=== PATIENT | female | born 1995 | race Caucasian/White ===

== ENCOUNTER 2025-07-10 01:15 | Emergency (ER) | payer BC, SELFPAY ==
[2025-07-10 01:34] VITALS: BP 101/67
[2025-07-10] MEDS: ZOFRAN 4 MG IV (03:27)
--- NOTE | 2025-07-10 03:50 | ED.GENMED ---
History of Present Illness
<Eun Clemens PA-C - Last Filed: 07/10/25 07:50>
General
Chief Complaint: Abdominal Symptoms
Source: patient
Exam Limitations: none
Time Seen by Provider: 07/10/25 03:43
Nursing documentation reviewed up to this point in time: agreed with
History of Present Illness
History of Present Illness:
30-year-old female presents to the ER today with concerns of multiple episodes of diarrhea for the past 4 days. She is also had intermittent abdominal cramping and pain. She started with vomiting today. She started using Imodium with some
decrease in frequency of stools. She reports that she has been going multiple times a day and her stools are just water. She has not been eating. She got home from arrival last night. She has not had a rash. No fevers, no blood in her stools.
The people who went on a trip with her have not been sick with similar symptoms.
Review of Systems
<Eun Clemens PA-C - Last Filed: 07/10/25 07:50>
Review of Systems
All Other Systems: ROS reviewed and negative except as documented in HPI and ROS
Phy Exam
<Eun Clemens PA-C - Last Filed: 07/10/25 07:50>
Physical Exam
Physical Exam:
General: Patient is well appearing and in no acute distress; non-toxic
Skin: Warm and dry, no rashes or lesions
Head: Normocephalic, atraumatic
Eyes: Sclera non-icteric. EOMs intact.
Cardiac: Regular rate and rhythm, no murmurs
Peripheral Vascular: No lower extremity swelling or edema
Pulm: Normal respiratory effort , no wheezes, rales, rhonchi
Abdomen: Left lower quadrant abdominal tenderness to palpation
Neuro: CN II-XII intact, no focal neurologic deficits.
Psychiatric: Appropriate mood and affect.
Course
<Eun Clemens PA-C - Last Filed: 07/10/25 07:50>
Orders/Labs/Results
Orders:
Orders
07/10/25 01:40
CONSULT Urgent
07/10/25 01:41
IV Insert/Care/Rem.- Treatment PRN
Straight cath- Treatment ONCE
Test Result ONCE
07/10/25 03:25
Ondansetron Injectable [Zofran] 4 mg .ROUTE .STK-MED ONE
07/10/25 03:26
Ondansetron Injectable [Zofran] 4 mg IV NOW STA
07/10/25 03:28
0.9% Sodium Chloride 1000 ml [Nss] 1,000 ml IV BOLUS
07/10/25 04:39
Test Result ONCE
07/10/25 04:41
Complete Blood Count/With Diff Urgent
Comprehensive Metabolic Panel Urgent
HCG, Serum Qualitative Screen Urgent
07/10/25 04:52
CT Abd/pelvis W Iv Cont Urgent
Comment:
Reason For Exam: Left lower quad pain
07/10/25 05:06
0.9% Sodium Chloride 1000 ml [Nss] 1,000 ml IV BOLUS
07/10/25 05:11
Feces O&P Giardia/Cryptosporidium AG [Giardia/Cryptosporidium Ag] Urgent
[facility] Source: Feces/Stool
Specimen Description:
Date Specimen was Collected: 07/10/25
Time Specimen was Collected: 05:09
Norovirus by PCR Urgent
[facility] Source: Feces/Stool
Specimen Description:
Date Specimen was Collected: 07/10/25
Time Specimen was Collected: 05:08
Stool Culture Urgent
[facility] Source: Feces/Stool
Specimen Description:
Date Specimen was Collected: 07/10/25
Time Specimen was Collected: 05:09
07/10/25 07:10
Ketorolac [Toradol] 15 mg IV NOW STA
Pantoprazole [Protonix IV] 40 mg IV NOW STA
07/10/25 07:11
0.9% Sodium Chloride 1000 ml [Nss] 1,000 ml IV BOLUS
Abnormal Lab Results
07/10/25
04:41
WBC 3.8 L 10^3/uL
(4.8-10.8)
Hct 35.6 L %
(37.0-47.0)
Monocytes % 13.1 H %
(1.7-9.3)
Sodium 133 L mmol/L
(135-145)
BUN 5 L mg/dl
(7-17)
Calcium 8.3 L mg/dl
(8.4-10.2)
Total Protein 6.0 L g/dl
(6.3-8.2)
Albumin 3.4 L g/dl
(3.5-5.0)
07/10/25 04:41
07/10/25 04:41
Vital Signs
Initial and Last Documented VS:
Initial Vital Signs
Temp Pulse Resp BP Pulse Ox
98.9 F 96 20 101/67 100
07/10/25 01:34 07/10/25 01:34 07/10/25 01:34 07/10/25 01:34 07/10/25 01:34
Last Documented Vital Signs
Temp Pulse Resp BP Pulse Ox
98.9 F 91 20 91/55 100
07/10/25 01:34 07/10/25 06:11 07/10/25 01:34 07/10/25 06:11 07/10/25 06:11
Maevelt;Roberto Pinto PA-C - Last Filed: 07/10/25 09:34>
Orders/Labs/Results
Orders:
Orders
07/10/25 01:40
CONSULT Urgent
07/10/25 01:41
IV Insert/Care/Rem.- Treatment PRN
Straight cath- Treatment ONCE
Test Result ONCE
07/10/25 03:25
Ondansetron Injectable [Zofran] 4 mg .ROUTE .STK-MED ONE
07/10/25 03:26
Ondansetron Injectable [Zofran] 4 mg IV NOW STA
07/10/25 03:28
0.9% Sodium Chloride 1000 ml [Nss] 1,000 ml IV BOLUS
07/10/25 04:39
Test Result ONCE
07/10/25 04:41
Complete Blood Count/With Diff Urgent
Comprehensive Metabolic Panel Urgent
HCG, Serum Qualitative Screen Urgent
07/10/25 04:52
CT Abd/pelvis W Iv Cont Urgent
Comment:
Reason For Exam: Left lower quad pain
07/10/25 05:06
0.9% Sodium Chloride 1000 ml [Nss] 1,000 ml IV BOLUS
07/10/25 05:11
Feces O&P Giardia/Cryptosporidium AG [Giardia/Cryptosporidium Ag] Urgent
[facility] Source: Feces/Stool
Specimen Description:
Date Specimen was Collected: 07/10/25
Time Specimen was Collected: 05:09
Norovirus by PCR Urgent
[facility] Source: Feces/Stool
Specimen Description:
Date Specimen was Collected: 07/10/25
Time Specimen was Collected: 05:08
Stool Culture Urgent
[facility] Source: Feces/Stool
Specimen Description:
Date Specimen was Collected: 07/10/25
Time Specimen was Collected: 05:09
07/10/25 07:10
Ketorolac [Toradol] 15 mg IV NOW STA
Pantoprazole [Protonix IV] 40 mg IV NOW STA
07/10/25 07:11
0.9% Sodium Chloride 1000 ml [Nss] 1,000 ml IV BOLUS
Abnormal Lab Results
07/10/25
04:41
WBC 3.8 L 10^3/uL
(4.8-10.8)
Hct 35.6 L %
(37.0-47.0)
Monocytes % 13.1 H %
(1.7-9.3)
Sodium 133 L mmol/L
(135-145)
BUN 5 L mg/dl
(7-17)
Calcium 8.3 L mg/dl
(8.4-10.2)
Total Protein 6.0 L g/dl
(6.3-8.2)
Albumin 3.4 L g/dl
(3.5-5.0)
07/10/25 04:41
07/10/25 04:41
Vital Signs
Initial and Last Documented VS:
Initial Vital Signs
Temp Pulse Resp BP Pulse Ox
98.9 F 96 20 101/67 100
07/10/25 01:34 07/10/25 01:34 07/10/25 01:34 07/10/25 01:34 07/10/25 01:34
Last Documented Vital Signs
Temp Pulse Resp BP Pulse Ox
98.9 F 91 20 91/55 100
07/10/25 01:34 07/10/25 06:11 07/10/25 01:34 07/10/25 06:11 07/10/25 06:11
Maevelt;Eun Clemens PA-C - Last Filed: 07/10/25 07:50>
MDM/Problems Addressed
Differential Diagnosis Includes:
ddx include foodborne illness, norovirus, colitis, etc.
MDM/Problems Addressed:
30-year-old female presents the ER today with concerns of diffuse diarrhea and vomiting. Said going on for the past few days. She is given 2 L of IV fluids. Will check CBC and CMP, will reassess. Will order CAT scan.
Will obtain stool cultures.
Anticipate discharge. Will do p.o. trial.
Case signed out to Gustavo GALAVIZ pending CT scan results
<Eun Clemens PA-C - Last Filed: 07/10/25 07:50>
*Pulse Oximetry
SaO2: 100
Oxygen Mode of Delivery: Room air
Patient hypoxic: no
*Critical Care Note
Total Time (30-74mins, 75-104mins- exclusive of procedures): Not Applicable
<Roberto Pinto PA-C - Last Filed: 07/10/25 09:34>
Update Note
Update Note:
Patient reevaluated multiple times. Initially she was having increased pain. This was treated with Protonix and Toradol which helped. She now was able to drink and have some crackers with only a mild reoccurrence of comfort. No further bowel
movements but the Giardia and Cryptosporidium test is negative. Stool culture is pending. Suspect overall viral or foodborne illness causing enterocolitis on CT will hold off on antibiotics for now. Recommended clear liquids and bland diet as
well as continued use of PPIs.
ED Attending Note
<Eun Clemens PA-C - Last Filed: 07/10/25 07:50>
-
Portions of this chart may have been created with voice recognition software.� Occasional wrong word or��sound alike� substitutions may have occurred due to the inherent limitations of voice recognition software.
Discharge Plan
Departure
Patient Disposition: Home (Routine Discharge)
Date of Disposition: 07/10/25
Time of Disposition: 09:24
Patient with high blood pressure during this ER visit?: No
Discharge Problem:
Abdominal pain
Instructions: Diarrhea in teens and adults, Abdominal Pain
Prescriptions:
New
pantoprazole [Protonix] 40 mg tablet,delayed release (DR/EC)
40 mg PO DAILY Qty: 14 0RF
naproxen 500 mg tablet
500 mg PO BID PRN (Reason: Pain) Qty: 14 0RF
No Action
loperamide [Imodium] 2 mg Capsule
0 mg PO DIRECTED MDD 8 mg PRN (Reason: diarrhea)
Patient Comments:
07/10/2025, 2 capsules for first epidose of diarrhea and then 1 capsule for every episode of diarrhea thereafter for a max daily dose of 8 mg per pt.
acetaminophen [Tylenol Extra Strength] 500 mg Tablet
1,000 mg PO Q6H PRN (Reason: mild pain)
ibuprofen [Advil] 200 mg Tablet
400 mg PO Q6H PRN (Reason: mild pain)
Visbiome 112.5 billion cell Capsule
1 cap PO DAILY
omega 5-khg-ooo-fish oil [Fish Oil] 1,000 (120-180) mg Capsule
1 cap PO HS
PNV no.95-ferrous fumarate-FA [ Multivitamins] 28 mg iron- 800 mcg Tablet
1 tab PO HS
ondansetron HCl [Zofran] 4 mg Tablet
4 mg PO Q6H PRN (Reason: n/v)
Patient Comments:
07/10/2025, pt. states to have used an old prescription; could not confirm with pharmacy or ecw records.
Referrals:
NONE,* [Family Provider, Internal Medicine]
Activity Restrictions/Additional Instructions:
Continue drinking plenty of clear liquids. Use antacid as directed. Return here for worsening symptoms otherwise follow-up with your doctor. Your stool culture is pending and you should receive a call if it is positive
Interventions
Interventions:
*General Assessment Last Done: 07/10/25 01:34
*Neglect/Abuse Screening Last Done: 07/10/25 01:34
*ED COVID-19 Vaccine History Last Done: 07/10/25 01:34
*ED Influenza Vaccine History Last Done: 07/10/25 01:34
LY-Pslzvk-Lobrinrokj Assessment Last Done: 07/10/25 04:07
Discharge Date and Time
Print Language: URUGUAYAN
[2025-07-10] MEDS: NSS 1000 IV ×3 (04:19→07:22)
[2025-07-10 04:55] LABS: Hematocrit 35.6 % (37.0-47.0); Hemoglobin 12.4 g/dL (12.0-16.0); Mean Corp Hgb Conc. 34.8 g/dL (33.0-37.0); Mean Corpuscular Volume 84.4 fL (81.0-99.0); Nucleated Red Blood Cells % 0 %; Platelet Count 148 10^3/uL (130-400); Red Cell Dist. Width 12.7 % (11.5-14.5)
[2025-07-10 05:04] LABS: HCG, Serum Qualitative Screen Negative
[2025-07-10 05:10] LABS: ALT (SGPT) 22 U/L (0-35); AST (SGOT) 23 U/L (14-36); Albumin 3.4 g/dl (3.5-5.0); Alkaline Phosphatase 69 U/L (38-126); Blood Urea Nitrogen 5 mg/dl (7-17); Calcium 8.3 mg/dl (8.4-10.2); Carbon Dioxide 22 mmol/L (22-30); Chloride 106 mmol/L (98-107); Glucose 90 mg/dl (70-99); Potassium 3.7 mmol/L (3.5-5.1); Sodium 133 mmol/L (135-145); Total Protein 6.0 g/dl (6.3-8.2); eGFR > 60.00
[2025-07-10 06:11] VITALS: BP 91/55
[2025-07-10] MEDS: PROTONIX IV 40 MG IV (07:20)
[2025-07-10] MEDS: TORADOL 15 MG IV (07:21)
--- NOTE | 2025-07-10 07:51 | PHANOTE ---
07/10/2025, pt. states to have used an old prescription of Zofran 4 mg Q6HPRN; could not confirm with pharmacy or ecw records.
[2025-07-10 10:22] VITALS: BP 85/57
[2025-07-10 10:23] VITALS: BP 89/54
== END 2025-07-10 10:42 | disposition home or self-care (01) ==
LOC: EMR 01:15
PROVIDERS: EMERGENCY PHYSICIAN Emergency Medicine
DX: R10.32 Left lower quadrant pain (principal)
CPT/HCPCS: 99284; 96374; 96375 ×2; 74177; 80053; 84703; 85025; 87045; 87046; 87328; 87329; 87427; 87798; Q9967